=== PATIENT | female | born 1990 | race Caucasian/White ===

== ENCOUNTER 2018-06-30 22:31 | Emergency (ER) | payer MEDICAID, OTHER ==
[~2018-06-30] VITALS: Ht 160 cm; Wt 62.0 kg
[2018-06-30 22:32] VITALS: BP 130/81
== END 2018-06-30 22:57 | disposition home or self-care (01) ==
LOC: ER 22:33
DX: F10.920 Alcohol use, unspecified with intoxication, uncomplicated (principal)
CPT/HCPCS: 99283

== ENCOUNTER 2022-04-13 08:44 | Outpatient (CLI) | payer MEDICAID ==
[2022-04-13] MEDS ORDERED: GADOTERATE MEGLUMINE 7.5 MMOL/15 ML VIAL IV ONE (10:38)
== END 2022-04-13 23:59 | disposition home or self-care (01) ==
LOC: RAD 08:44
PROVIDERS: ATTEND Nurse Practitioner Family
DX: G44.52 New daily persistent headache (NDPH) (principal); R79.89 Other specified abnormal findings of blood chemistry; N64.52 Nipple discharge; J34.89 Other specified disorders of nose and nasal sinuses
CPT/HCPCS: 70544; 70552; 70553; A9575

== ENCOUNTER 2023-04-18 10:44 | Emergency (ER) | payer BC, MEDICAID ==
[~2023-04-18] VITALS: Ht 160 cm; Wt 68.2 kg
[2023-04-18 10:46] VITALS: BP 135/95; PULSE 113; TEMP 98.2; O2SAT 96
[2023-04-18 11:10] VITALS: RESP 18
[2023-04-18] MEDS: dexamethasone sod phosphate 10mg/ml inj IM STA (11:10)
[2023-04-18] MEDS: ketorolac trometh inj. 60 MG/2 ML VIAL IM ONE (11:10)
[2023-04-18] MEDS ORDERED: HYDR-3965 PO (12:06)
[2023-04-18] MEDS ORDERED: MELO-100 PO (12:06)
== END 2023-04-18 12:21 | disposition home or self-care (01) ==
LOC: ER 10:45
DX: M25.512 Pain in left shoulder (principal); M70.22 Olecranon bursitis, left elbow; Y93.89 Activity, other specified
CPT/HCPCS: 73030; 73080; 96372; 99284; J1100; J1885